=== PATIENT | female | born 2000 ===

== ENCOUNTER 2021-08-05 20:49 | Inpatient (IN) | payer SELFPAY ==
[2021-08-05 14:07] LABS: Basophils % (Auto) 0.2 % (0.0-1.8); Eosinophils % (Auto) 0.2 % (0.0-4.3); Hematocrit 31.9 % (30.3-42.9); Hemoglobin 10.2 gm/dl (10.1-14.3); Lymphocytes # (Auto) 1.7 K/mm3 (1.2-5.4); Lymphocytes % (Auto) 18.8 % (13.4-35.0); Mean Corpuscular HGB Conc 32 % (30-34); Mean Corpuscular Volume 85 fl (79-97); Monocytes # (Auto) 0.5 K/mm3 (0.0-0.8); Monocytes % (Auto) 5.4 % (0.0-7.3); Platelet Count 180 K/mm3 (140-440); Red Blood Count 3.76 M/mm3 (3.65-5.03); Red Cell Distribution Width 15.5 % (13.2-15.2)
[~2021-08-05 20:49] MED LIST: ACETAMINOPHEN 325 MG TAB PO PRN; CARBOPROST TROMETHAMINE 250 MCG/1 ML INJ IM PRN; LOPERAMIDE 2 MG CAP PO PRN; METHYLERGONOVINE MALEATE 0.2 MG/ML VIAL IM PRN; MINERAL OIL 30 ML ORAL LIQD PO PRN; TERBUTALINE 1 MG/1 ML INJ SUB-Q PRN; ePHEDrine SULFATE 50 MG/1 ML INJ IV PRN; miSOPROStol 200 MCG TAB PR PRN
[2021-08-05] MEDS: LACTATED RINGERS 1,000 ML IV SCH (21:47)
[2021-08-05] MEDS: miSOPROStol 25 MCG TAB PO SCH (22:00)
[2021-08-05] MEDS ORDERED: PENICILLIN G POTASSIUM 5 MIL.UNITS in SODIUM CHLORIDE 0.9% 50 ML IV ONE (22:00)
[2021-08-06] MEDS ORDERED: PENICILLIN G POTASSIUM 2.5 MIL.UNITS in SODIUM CHLORIDE 0.9% 50 ML IV SCH (02:00)
[2021-08-06] MEDS: miSOPROStol 25 MCG TAB PO SCH (02:10)
[2021-08-06] MEDS: BUTORPHANOL 2 MG/1 ML INJ IV PRN ×2 (04:55→08:49)
[2021-08-06] MEDS ORDERED: OXYTOCIN DRIP 30,000 MILLIUNITS/500 ML BAG IV ONE (05:16)
[2021-08-06] MEDS: LACTATED RINGERS 1,000 ML IV SCH (06:27)
--- NOTE | 2021-08-06 06:48 | History and Physical Report ---
History of Present Illness Date of examination: 08/05/21 Date of admission: 08/05/2021 Chief complaint: Induction of labor History of present illness: 21-year-old at 41-2/7 weeks gestation presents to labor delivery for induction of labor secondary to post due date. There is no vaginal bleeding. There is no leaking of fluid. There are irregular contractions. There is good movement. OB ultrasound limited performed in labor and delivery revealed an amniotic fluid index of 4.5 cm. As such, this fulfills the contemporary criteria for oligohydramnios. The patient is admitted to labor and delivery for induction of labor. Past History Past Medical History: no pertinent history Past Surgical History: no surgical history Family/Genetic History: none Social history: no significant social history - Obstetrical History Expected Date of Delivery: 07/27/21 Actual Gestation: 41 Week(s) 3 Day(s) : 2 Para: 1 Hx # Term Pregnancies: 1 Medications and Allergies Allergies Allergy/AdvReac Type Severity Reaction Status Date / Time amoxicillin Allergy Swelling Verified 08/06/21 06:47 Active Meds: Active Medications Acetaminophen (Acetaminophen 325 Mg Tab) 650 mg PO Q4H PRN PRN Reason: Pain, Mild (1-3) Butorphanol Tartrate (Butorphanol 2 Mg/1 Ml Inj) 1 mg IV Q2H PRN PRN Reason: Pain, Moderate(4-6) LABOR PAIN Last Admin: 08/06/21 04:55 Dose: 1 mg Carboprost Tromethamine (Carboprost Tromethamine 250 Mcg/1 Ml Inj) 250 mcg IM ONCE PRN PRN Reason: Uterine Bleeding Ephedrine Sulfate (Ephedrine Sulfate 50 Mg/1 Ml Inj) 10 mg IV Q2M PRN PRN Reason: Hypotension Lactated Ringer's (Lactated Ringers) 1,000 mls @ 125 mls/hr IV DIRECT AMALIA Last Admin: 08/06/21 06:27 Dose: 125 mls/hr Cefazolin Sodium (Ancef/Ns 1 Gm/50 Ml) 1 gm in 50 mls @ 100 mls/hr IV Q8H AMALIA; Protocol Methylergonovine Maleate (Methylergonovine Maleate 0.2 Mg/Ml Vial) 0.2 mg IM ONCE PRN PRN Reason: Uterine Bleeding Terbutaline Sulfate (Terbutaline 1 Mg/1 Ml Inj) 0.25 mg SUB-Q ONCE PRN PRN Reason: Hyperstimulation/Hypertonicity Review of Systems All systems: negative - Vital Signs Vital signs: Vital Signs Pulse BP 99 H 118/74 08/05/21 12:46 08/05/21 12:46 Temp Pulse Resp BP Pulse Ox 98.4 F 101 H 16 123/85 98 08/06/21 02:21 08/06/21 06:40 08/05/21 17:31 08/05/21 21:35 08/06/21 06:40 - Physical Exam Breasts: Positive: normal Cardiovascular: Regular rate Lungs: Positive: Normal air movement Abdomen: Positive: normal appearance Genitourinary (Female): Positive: normal external genitalia, normal perenium Vulva: both: normal Vagina: Positive: normal moisture Uterus: Positive: enlarged Adnexa: both: normal Anus/Rectum: Positive: normal perianal skin Extremities: Positive: normal Deep Tendon Reflex Grade: Normal +2 - Obstetrical FHR: category 1 Uterine Contraction Monitor Mode: Palpation Cervical Dilatation: 1 Cervical Effacement Percentage: 50 station: -3 Uterine Contraction Pattern: Absent Results Result Diagrams: 08/05/21 Unknown Abnormal lab results 08/05/21 Range/Units Unknown MCH 27 L (28-32) pg RDW 15.5 H (13.2-15.2) % Seg Neutrophils % 75.4 H (40.0-70.0) % All other labs normal. Ultrasound: report reviewed (OB Ultrasound Limited= SLIUP. Vertex. EFW= 3571 g. CONCHIS= 4.5 cm.) Assessment and Plan - Patient Problems (1) 41 weeks gestation of Current Visit: Yes Status: Acute Plan to address problem: care is up-to-date and [facility] . She is GBS positive. (2) Post term , 41 weeks Current Visit: Yes Status: Acute Plan to address problem: Admit to labor and delivery. Start induction of labor. (3) Oligohydramnios in third trimester Current Visit: Yes Status: Acute Plan to address problem: Amniotic fluid next is 4.5 cm. Admit to labor delivery for induction of labor. (4) Group B Streptococcus carrier, +RV culture, currently Current Visit: Yes Status: Acute Plan to address problem: As patient is allergic to amoxicillin, start Ancef for intrapartum GBS prophylaxis per 2010 CDC MMWR recommendations. (5) Encounter for induction of labor Current Visit: Yes Status: Acute Plan to address problem: Ripen cervix with oral Cytotec.
[2021-08-06] MEDS ORDERED: LIDOCAINE (2%) 20 MG/1 ML VIAL 20 ML MDV INFILTRATI ONE (08:27)
--- NOTE | 2021-08-06 08:44 | Ultrasound Report ---
US OB follow up INDICATION / CLINICAL INFORMATION: IOL COMPARISON: None available. TECHNIQUE: Using a transcutaneous probe, multiple grayscale, color Doppler, and spectral Doppler imag es of the uterus and fetus were captured and stored. FINDINGS: Single cephalic fetus is demonstrated with heart rate of 123 bpm. Oligohydramnios is demonstrated, the amniotic fluid index measures 4.5 cm. Biparietal Diameter = 9.3 cm = 37, 6 weeks, days Head Circumference = 33.7 cm = 38, 4 weeks, days Abdominal Circumference = 34.5 cm = 38, 3 weeks, days Femur Length = 7.8 cm = 39, 6 weeks, days Average Ultrasound Age (AUA) = 38, 5 weeks, days. EDC 08/14/2021. Clinical estimate of gestational age based on LMP of 10/20/2020 is 41 weeks 2 days. Estimated weight = 3571 g. IMPRESSION: 1. Single living intrauterine fetus as detailed. Oligohydramnios is present. Signer Name: Brad Bourne II, MD Signed: 08/06/2021 12:08 AM Workstation Name: [id number]
[2021-08-06] MEDS ORDERED: miSOPROStol 200 MCG TAB PR SCH ×2 (09:30→13:00)
[2021-08-06] MEDS ORDERED: miSOPROStol 200 MCG TAB ONE (09:56)
[2021-08-06] MEDS ORDERED: LIDOCAINE (2%) 20 MG/1 ML VIAL 20 ML MDV INFILTRATI SCH (10:00)
--- NOTE | 2021-08-06 10:12 | Procedure Note ---
OB Delivery Note - Delivery Date of Delivery: 08/06/21 Surgeon: ZOE BAER - Vaginal Delivery presentation: vertex Delivery position: OA Intrapartum events: shoulder dystocia, uterine atony Delivery induction: none Delivery augmentation: rupture of membranes Delivery monitor: external FHT, external uterine Route of delivery: Delivery placenta: spontaneous Delivery cord: nuchal cord (x1) Delivery laceration: 1st degree (x3) Delivery repair: chromic Anesthesia: local Delivery comments: Nurse called me to bedside with pt screaming and pushing. pt check with anterior lip and same reduced without difficulty. Pt continued to push and we turned her from supine to the lateral multiple times until infant crowned, head delivered with turtle sign with pt already in McRobert's position and suprapubic pressure done by nurse Liliana and then posterior left arm delivered and counter clockwise rotation done through loose nuchal cord and body followed without difficulty. moving both arms well while suctioning baby and baby placed on abdomen of mom. The placenta delivered without difficulty. Vaginal repair done with lidocaine to left and right labia and perineum, all first degree lacerations using running locked 2-0 chromic. Bimanual done and uterine atony noted with IV pitocin in progress, lower uterine segment clots removed and pt given 800mcg per rectum. Cervix visualized and noted to have no lacerations. Mom and baby doing well. - A at 1 minute: 8 at 5 minutes: 9 Gender: Female (wt 3990g)
[2021-08-06] MEDS ORDERED: ceFAZolin/NS 1 GM/50 ML 1 GM/50 ML BAG IV SCH (11:00)
[2021-08-06] MEDS ORDERED: FLU VACC QUAD 2021-22(6MOS UP)/PF 60 MCG/0.5 ML SYRINGE IM ONE (12:00)
[2021-08-06] MEDS ORDERED: miSOPROStol 100 MCG TAB PR PRN (12:03)
[2021-08-06] MEDS ORDERED: ACETAMINOPHEN 325 MG TAB PO PRN (12:30)
[2021-08-06] MEDS ORDERED: ONDANSETRON 4 MG/2 ML INJ IV PRN (12:30)
[2021-08-06] MEDS ORDERED: diphenhydrAMINE 25 MG CAP PO PRN (12:30)
[2021-08-06] MEDS ORDERED: WITCH HAZEL/ GLYCERIN PAD TP PRN (12:30)
[2021-08-06] MEDS ORDERED: MAGNESIUM HYDROXIDE (MOM) ORAL LIQD UDC PO PRN (12:30)
[2021-08-06] MEDS ORDERED: BENZOCAINE/MENTHOL 20/0.5% TOP SPRAY 56 GM TP PRN (12:30)
[2021-08-06] MEDS ORDERED: miSOPROStol 200 MCG TAB PR PRN (13:00)
[2021-08-06] MEDS ORDERED: OXYTOCIN DRIP 30 UNITS/500 ML BAG IV SCH (13:00)
[2021-08-06] MEDS ORDERED: PROMETHAZINE 25 MG RECT SUPP PR PRN (13:00)
[2021-08-06] MEDS ORDERED: LANOLIN/ZINC/DIMETHICONE (LANSINOH) 7 GM TP PRN (13:00)
[2021-08-06] MEDS ORDERED: PROMETHAZINE 25 MG TAB PO PRN (13:00)
[2021-08-06] MEDS ORDERED: oxyCODONE /ACETAMINOPHEN 5-325MG TAB PO PRN (13:00)
[2021-08-06] MEDS: IBUPROFEN 800 MG TAB PO SCH ×2 (13:30→21:57)
[2021-08-07 05:30] LABS: Hemoglobin 8.7 gm/dl (10.1-14.3); Mean Corpuscular HGB Conc 32 % (30-34); Mean Corpuscular Volume 85 fl (79-97); Platelet Count 155 K/mm3 (140-440); Red Blood Count 3.19 M/mm3 (3.65-5.03); Red Cell Distribution Width 15.9 % (13.2-15.2)
[2021-08-07] MEDS: IBUPROFEN 800 MG TAB PO SCH ×3 (09:14→20:30)
[2021-08-07] MEDS: PRENATAL VIT27-FE FUMARATE-FOLIC ACID VIT TAB PO SCH (09:14)
--- NOTE | 2021-08-07 12:02 | Progress Note ---
Assessment and Plan A: PP Day #1 Asymptomatic Anemia P: Follow Routine Orders FeSO4 325mg PO BID (continue at home) D/C today per patient request RTO in 6 weeks Subjective - Subjective Date of service: 08/07/21 Patient reports: appetite normal, voiding normally, pain well controlled, flatus, bowel movement, ambulating normally [place]: doing well, bottle feeding (and ) Objective - Vital Signs Latest vital signs: Vital Signs Temp Pulse Resp BP BP Pulse Ox Pulse Ox 08/07/21 08:20 98.2 F 71 16 115/51 97 08/07/21 08:00 99 08/07/21 00:00 98.3 F 61 18 109/54 99 08/06/21 22:57 18 08/06/21 21:57 18 08/06/21 21:25 99 08/06/21 20:55 98.2 F 66 18 106/68 99 08/06/21 16:39 98.6 F 68 18 108/61 97 08/06/21 13:30 16 08/06/21 12:53 98 08/06/21 12:17 98.8 F 68 18 120/63 98 Intake and Output 08/06/21 08/07/21 08/07/21 22:59 06:59 14:59 Intake Total 600 480 200 Balance 600 480 200 Intake: Oral 240 200 Intake, Free Water 360 480 Other: Total, Intake Amount 240 200 # Voids Void 1 1 1 - Exam Breasts: Present: normal Cardiovascular: Present: Regular rate Lungs: Present: Clear to auscultation, Normal air movement Abdomen: Present: normal appearance, soft, normal bowel sounds Uterus: Present: normal, firm, fundal height below umbilicus Extremities: Present: normal - Labs Labs: Abnormal lab results 08/07/21 Range/Units 04:54 WBC 12.9 H (4.5-11.0) K/mm3 RBC 3.19 L (3.65-5.03) M/mm3 Hgb 8.7 L (10.1-14.3) gm/dl Hct 27.0 L (30.3-42.9) % MCH 27 L (28-32) pg RDW 15.9 H (13.2-15.2) %
--- NOTE | 2021-08-07 12:03 | Discharge Summary ---
Providers - Providers Date of Admission: 08/06/21 08:26 Date of discharge: 08/07/21 Attending physician: ZOE BAER Primary care physician: ZOE BAER Hospitalization Reason for admission: induction of labor Delivery: Episiotomy: none Laceration: 1st degree Other procedures: none complications: none Discharge diagnosis: IUP at term delivered [place] baby: female Condition at discharge: Good Disposition: 01 HOME / SELF CARE / HOMELESS Plan - Provider Discharge Summary Activity: routine, no sex for 6 weeks, no heavy lifting 4 weeks, no strenuous exercise Diet: routine Instructions: routine Additional instructions: [] Smoking cessation referral if applicable(refer to patient education folder for contact #) [] Refer to [facility] Booklet Call your doctor immediately for: * Fever > 100.5 * Heavy vaginal bleeding ( >1 pad per hour) * Severe persistent headache * Shortness of breath * Reddened, hot, painful area to leg or breast * Drainage or odor from incision. * Keep incision clean and dry at all times and follow doctor's instructions regarding bathing/showering - Follow up plan Follow up: ZEO BAER MD [Primary Care Provider] - 6 Weeks Forms: [facility] Discharge Summary
[2021-08-07] MEDS: FERROUS SULFATE 325 MG TAB PO SCH (21:55)
[2021-08-08] MEDS: IBUPROFEN 800 MG TAB PO SCH (02:15)
[2021-08-08] MEDS: FERROUS SULFATE 325 MG TAB PO SCH (09:09)
[2021-08-08] MEDS: PRENATAL VIT27-FE FUMARATE-FOLIC ACID VIT TAB PO SCH (09:09)
[2021-08-08 12:33] VITALS: BP 110/76
== END 2021-08-08 11:20 | disposition home or self-care (01) | DRG 806 ==
LOC: LD 20:49 → TRG 20:49 → LD 08-06 07:42 → TRG 08-06 07:42 → LD 08-06 08:04 → UNDOADMIN 08-06 08:07 → LD 08-06 08:07 → UNDOADMIN 08-06 08:14 → LD 08-06 08:26 → OB 08-06 11:37
PROVIDERS: ADMIT Obstetrics & Gynecology; ATTEND Obstetrics & Gynecology
PROC: 10E0XZZ Delivery of Products of Conception, External Approach (ICD-10-PCS; principal; 2021-08-06)
PROC: 0HQ9XZZ Repair Perineum Skin, External Approach (ICD-10-PCS; 2021-08-06)
DX: O48.0 Post-term pregnancy (principal); O41.03X0 Oligohydramnios, third trimester, not applicable or unspecified; Z37.0 Single live birth; Z3A.41 41 weeks gestation of pregnancy; Z20.822 Contact with and (suspected) exposure to COVID-19; O99.824 Streptococcus B carrier state complicating childbirth; O66.0 Obstructed labor due to shoulder dystocia; O69.81X0 Labor and delivery complicated by cord around neck, without compression, not applicable or unspecified; O62.2 Other uterine inertia; O70.0 First degree perineal laceration during delivery; O90.81 Anemia of the puerperium
CPT/HCPCS: 36415; 76816; 85025; 85027; 86592; 86850; 86900; 86901; 99211; G0378; J3490; G0463; J0595; J0690; J2540; J2590; J7120; U0003